=== PATIENT | female | born 1975 | race Caucasian/White ===

== ENCOUNTER 2021-05-20 21:52 | Emergency (ER) | payer BC ==
--- NOTE | 2021-05-20 23:12 | EDM.PDOC ---
ED HPI GENERAL MEDICAL PROBLEM - General Chief Complaint: General Time Seen by Provider: 05/20/21 21:55 Source of Information: Reports: Patient, Family History Limitations: Reports: No Limitations - History of Present Illness INITIAL COMMENTS - FREE TEXT/NARRATIVE: Patient presented to the ED because of brief syncopal episode after having several drinks of whiskey and 1 can of beer. She denies having any headache, dizziness, nausea,vomiting. Denies having palpitations or chest pain. - Related Data Allergies Allergy/AdvReac Type Severity Reaction Status Date / Time No Known Allergies Allergy Verified 05/20/21 21:57 Home Meds: Home Meds lisinopriL [Lisinopril] 10 mg PO DAILY 05/20/21 [History] Past Medical History Cardiovascular History: Reports: Hypertension - Past Surgical History Musculoskeletal Surgical History: Reports: Other (See Below) Other Musculoskeletal Surgeries/Procedures:: Knee scope Social & Family History - Tobacco Use Tobacco Use Status *Q: Never Tobacco User - Caffeine Use Caffeine Use: Reports: Coffee, Energy Drinks, Tea - Recreational Drug Use Recreational Drug Use: Yes Drug Use in Last 12 Months: Yes Recreational Drug Type: Reports: Marijuana/Hashish Recreational Drug Use Frequency: Socially ED ROS GENERAL - Review of Systems Review Of Systems: See Below Constitutional: Reports: No Symptoms HEENT: Reports: No Symptoms Respiratory: Reports: No Symptoms Cardiovascular: Reports: No Symptoms Endocrine: Reports: No Symptoms GI/Abdominal: Reports: No Symptoms : Reports: No Symptoms Musculoskeletal: Reports: No Symptoms Skin: Reports: No Symptoms Neurological: Reports: Syncope Psychiatric: Reports: No Symptoms Hematologic/Lymphatic: Reports: No Symptoms ED EXAM, GENERAL - Physical Exam Exam: See Below Exam Limited By: No Limitations General Appearance: Alert, No Apparent Distress Eye Exam: Bilateral Eye: PERRL Ears: Normal External Exam, Normal Canal Nose: Normal Inspection, Normal Mucosa, No Blood Throat/Mouth: Normal Inspection, Normal Lips, Normal Teeth Head: Atraumatic, Normocephalic Neck: Normal Inspection, Supple, Non-Tender, Full Range of Motion Respiratory/Chest: No Respiratory Distress, Lungs Clear, Normal Breath Sounds, No Accessory Muscle Use, Chest Non-Tender Cardiovascular: Normal Peripheral Pulses, Regular Rate, Rhythm, No Edema, No Gallop, No JVD, No Murmur, No Rub GI/Abdominal: Normal Bowel Sounds, Soft, Non-Tender, No Organomegaly Back Exam: Normal Inspection, Full Range of Motion Extremities: Normal Inspection, Normal Range of Motion, Non-Tender #1 Interpretation EKG Date: 05/20/21 Time: 22:03 Rhythm: NSR Rate (Beats/Min): 94 [place]: Normal P-Wave: Present QRS: Normal ST-T: Normal QT: Normal [place]/PQ Interval: 121 Comparison: NA - No Prior EKG EKG Interpretation Comments: NSR Course - Vital Signs Text/Narrative:: Lab/EKG result was reviewed and discussed with patient and her Last Recorded V/S: Last Vital Signs Temp 36.1 C 05/20/21 21:52 Pulse 103 H 05/20/21 23:16 Resp 13 05/20/21 23:16 BP 101/70 05/20/21 23:16 Pulse Ox 97 05/20/21 23:16 - Orders/Labs/Meds Orders: Active Orders 24 hr Category Date Time Status Head wo Cont [CT] Stat Exams 05/20/21 22:04 Taken EKG 12 Lead [EK] Routine Ther 05/20/21 22:03 Ordered Labs: Laboratory Tests 05/20/21 05/20/21 05/20/21 Range/Units 22:25 22:25 22:25 WBC 8.9 (3.0-10.3) x10-3/uL RBC 4.19 (3.60-5.20) x10(6)uL Hgb 13.2 (11.4-15.5) g/dL Hct 39.7 (34.2-48.2) % MCV 94.9 (76.7-100.5) fL MCH 31.5 (23.9-33.9) pg MCHC 33.2 (31.9-34.8) g/dL RDW 12.4 (12.3-16.5) % Plt Count 268 (151-488) x10(3)uL MPV 8.4 (7.1-12.4) fL Neut % (Auto) 74.7 (30.8-76.2) % Lymph % (Auto) 20.6 (18.4-52.1) % [place] % (Auto) 3.6 L (4.4-15.7) % Eos % (Auto) 0.7 (0.6-8.1) % Baso % (Auto) 0.4 (0.2-1.5) % Neut # (Auto) 6.7 H (1.5-6.3) x10-3/uL Lymph # (Auto) 1.8 (1.0-4.4) x10-3/uL [place] # (Auto) 0.3 (0.3-1.0) x10-3/uL Eos # (Auto) 0.1 (0.0-0.8) x10-3/uL Baso # (Auto) 0.0 (0.0-0.1) x10-3/uL Sodium 140 (135-145) mmol/L Potassium 4.2 (3.5-5.3) mmol/L Chloride 105 (100-110) mmol/L Carbon Dioxide 24 (21-32) mmol/L BUN 13 (7-18) mg/dL Creatinine 1.0 (0.55-1.02) mg/dL Est Cr Clr Drug Dosing 74.24 mL/min Estimated GFR (MDRD) 60 (>60) BUN/Creatinine Ratio 13.0 (9-20) Glucose 99 (80-116) mg/dL Calcium 8.5 L (8.6-10.2) mg/dL Total Bilirubin 0.4 (0.1-1.3) mg/dL AST 35 H (5-25) IU/L ALT 42 H (12-36) U/L Alkaline Phosphatase 75 (56-112) IU/L Troponin I 5.8 (4.0-60.3) pg/mL Total Protein 6.7 (6.0-8.0) g/dL Albumin 3.5 (3.5-5.2) g/dL Globulin 3.2 g/dL Albumin/Globulin Ratio 1.1 Ethyl Alcohol 0.12 H (<0.03) % Departure - Departure Time of Disposition: 23:45 Disposition: Home, Self-Care 01 Condition: Good Clinical Impression: Syncope, Alcohol intoxication - Discharge Information Instructions: Alcohol Intoxication, [id number], Syncope, [id number] Referrals: Jc Crowe MD [Primary Care Provider] - Forms: ED Department Discharge Additional Instructions: Please read discharge instructions on syncope and alcohol intoxication Drink in moderation If your syncope keeps happening you need to follow up with your doctor so you can be hook to a holter or event monitor to see if you have any abnormal heart beat Sepsis Event Note (ED) - Evaluation Sepsis Screening Result: No Definite Risk - My Orders Last 24 Hours: My Active Orders 05/20/21 22:03 EKG 12 Lead [EK] Routine 05/20/21 22:04 Head wo Cont [CT] Stat - Assessment/Plan Last 24 Hours: My Active Orders 05/20/21 22:03 EKG 12 Lead [EK] Routine 05/20/21 22:04 Head wo Cont [CT] Stat
== END 2021-05-20 23:40 | disposition home or self-care (01) ==
LOC: FB.ED 21:52
DX: R55 Syncope and collapse (principal); F10.129 Alcohol abuse with intoxication, unspecified; I10 Essential (primary) hypertension; Z79.899 Other long term (current) drug therapy; Y90.5 Blood alcohol level of 100-119 mg/100 ml
CPT/HCPCS: 36415; 70450; 80053; 80307; 84484; 85025; 93005; 99284-25

== ENCOUNTER → 2022-07-29 | Day surgery (SDC) | payer BC ==
[~2022-07-29] MED LIST: Glycopyrrolate 0.2 MG/ML 5 ML MDV IV ONE; Labetalol 100 MG/20 ML MDV IV ONE; Lactated Ringers 1,000 ML IV SCH; Midazolam 1 MG/ML 2 ML SDV IV ONE; Propofol 200 MG/20 ML SDV IV ONE; Sodium Chloride 0.9% 10 ML Syringe FLUSH PRN
== END ==
LOC: FB.SDS 06:00
PROVIDERS: ATTEND Surgery
DX: K63.5 Polyp of colon (principal); K62.1 Rectal polyp; K57.30 Diverticulosis of large intestine without perforation or abscess without bleeding; I10 Essential (primary) hypertension; Z87.891 Personal history of nicotine dependence; Z79.899 Other long term (current) drug therapy; Z98.890 Other specified postprocedural states
CPT/HCPCS: 00812-QZ; 88305; J2250; J2704; J3490; J7120